=== PATIENT | male | born 1965 | race Caucasian/White ===

== ENCOUNTER → 2017-08-04 | Outpatient (CLI) | payer OTHER ==
[2015-06-29 09:29] VITALS: BP_DIAS 80
[2015-06-29 09:44] VITALS: BP_SYST 70
[~2017-08-04] MED LIST: ALPR0.5T PO; CYCL10TA2 PO; HYDR-2766 PO; OMEP40CA5 PO
[2017-08-04 13:19] LABS: ALBUMIN/GLOBULIN RATIO 1.3 (1.0-1.7); CALCIUM 9.3 mg/dL (8.5-10.1); CREATININE 0.8 mg/dL (0.7-1.3); GFR 101.1; POTASSIUM 4.4 mmol/L (3.5-5.1); TOTAL BILIRUBIN 0.5 mg/dL (0.2-1.0); TOTAL PROTEIN 7.2 g/dL (6.4-8.2)
== END | disposition home or self-care (01) ==
LOC: LAB 12:30
PROVIDERS: ATTEND Physician Assistant Medical
DX: M79.89 Other specified soft tissue disorders (principal)
CPT/HCPCS: 36415; 80053

== ENCOUNTER → 2018-02-22 | Outpatient (CLI) | payer OTHER, MEDICARE | END | disposition home or self-care (01) | LOC: RAD 14:29 | DX: M41.84 Other forms of scoliosis, thoracic region (principal); R05 Cough | CPT/HCPCS: 71046 ==

== ENCOUNTER → 2018-12-06 | Outpatient (CLI) | payer OTHER, MEDICARE ==
[2015-06-29 09:29] VITALS: BP_DIAS 80
[2015-06-29 09:44] VITALS: BP_SYST 70
[~2018-12-06] MED LIST changes: -HYDR-2766 PO; +HYDR-2769 PO
[2018-12-06 16:35] LABS: ALBUMIN 3.5 g/dL (3.4-5.0); ALBUMIN/GLOBULIN RATIO 0.9 (1.0-1.7); CALCIUM 9.2 mg/dL (8.5-10.1); CREATININE 0.8 mg/dL (0.7-1.3); GFR 100.7; POTASSIUM 3.7 mmol/L (3.5-5.1); TOTAL BILIRUBIN 0.4 mg/dL (0.2-1.0); TOTAL PROTEIN 7.2 g/dL (6.4-8.2)
[2018-12-06 16:37] LABS: CHOLESTEROL/HDL RATIO 5.3
--- NOTE | 2018-12-06 18:49 | RAD ---
Three-view right knee radiographs 12/06/2018 CLINICAL HISTORY: Chronic right knee pain and swelling. AP, lateral and oblique digital radiographs of the right knee were obtained. Moderate degenerative changes are seen involving all 3 compartments of the right knee. These consist of varying degrees of joint compartment narrowing, subchondral sclerosis and associated minimal to mild osteophyte formation. Chondrocalcinosis is seen involving the medial and lateral compartments. No fracture or dislocation is seen. IMPRESSION: Degenerative changes are seen involving the right knee as outlined above. No acute osseous abnormality is seen. Electronically signed by: Manuel Kat MD (12/06/2018 6:45 PM) [facility]
== END | disposition home or self-care (01) ==
LOC: RAD 15:55
PROVIDERS: ATTEND Family Medicine
DX: M17.11 Unilateral primary osteoarthritis, right knee (principal); E78.49 Other hyperlipidemia; M25.761 Osteophyte, right knee; M11.261 Other chondrocalcinosis, right knee
CPT/HCPCS: 36415; 73562; 80053; 80061

== ENCOUNTER → 2020-06-05 | Outpatient (CLI) | payer OTHER, MEDICARE ==
[2015-06-29 09:29] VITALS: BP_DIAS 80
[2015-06-29 09:44] VITALS: BP_SYST 70
[~2020-06-05] MED LIST changes: +CEPH500T PO; +OMEP40CA45 PO; -OMEP40CA5 PO
--- NOTE | 2020-06-07 15:08 | PATHOLOGY ---
[facility] Accession Number: [id number] . 01 Material submitted: . arm - RIGHT ARM LESION. Modifiers: right . 01 Clinical history: . Malignant neoplasm . 02 Diagnosis: Skin "right arm", biopsy: - BASAL CELL CARCINOMA; completely excised. (MLK:ivan; 06/07/2020) QMS 06/07/2020 1118 Local . 02 Electronically signed: . Wilbur Delacruz MD, Pathologist NPI- [id number] . 01 Gross description: . The specimen is received in formalin, labeled "Akira Fowler, right arm" and consists of a crusted pink-mo skin punch measuring 0.5 x 0.5 x 0.2 cm. The margin is inked. It is bisected and entirely submitted in A1. (GABRIEL; 06/06/2020) JFQ/JFQ 06/06/2020 1733 Local . 02 Pathologist provided ICD-10: C44.612 . 02 CPT . 045588 Specimen Comment: A courtesy copy of this report has been sent to [phone] Specimen Comment: Report sent to Performed at: 01 [facility] [address], [place] [id number] MD Wilver Naidu MD Phone: [phone] Performed at: 02 [facility] [address], [place] [id number] MD David Cedillo MD Phone: [phone]
== END | disposition home or self-care (01) ==
LOC: SPEC 16:07
PROVIDERS: ATTEND Family Medicine
DX: C44.612 Basal cell carcinoma of skin of right upper limb, including shoulder (principal)
CPT/HCPCS: 88305

== ENCOUNTER 2020-06-14 17:26 | Emergency (ER) | payer OTHER, MEDICARE ==
[~2020-06-14] VITALS: Ht 185.4 cm; Wt 82.0 kg
[~2020-06-14 17:26] MED LIST changes: -CEPH500T PO
--- NOTE | 2020-06-14 18:46 | PHYS DOC ---
General Adult EDM: Chief Complaint: LOWER EXTREMITY SWELLING HPI: HPI: Patient is a 55 year old [male patient who presents with right lower leg swelling and discoloration. Patient reports he has been like this for the last 2 days, has seem to be a bit worse. States he has had something similar in the past, had talked his primary care, they were concerned over a blood clot however they had never tested him for it, and put him on an antibiotic and it seemed to improve. States no recent trauma, no chemical exposure. States he had taken a water pill at home yesterday, and he had done this in the past and that helped before, but he has not noticed any swelling today. Also reports he had noticed a blister behind his right leg today also. Denies any fever. Review of Systems: Review of Systems: Constitutional: Denies fever or chills. [] Respiratory: Denies cough or shortness of breath. [] Cardiovascular: Denies chest pain or edema. [] Musculoskeletal: Denies back pain or joint pain. [] Integument: Reports discoloration to lateral lower legs, right significant worse than left, with blister noted to right leg. [] Neurologic: Denies headache, focal weakness or sensory changes. [] Endocrine: Denies polyuria or polydipsia. [] Lymphatic: Denies swollen glands. [] Psychiatric: Denies depression or anxiety. [] Heart Score: Risk Factors: Risk Factors: DM, Current or recent (<one month) smoker, HTN, HLP, family history of CAD, obesity. Risk Scores: Score 0 - 3: 2.5% MACE over next 6 weeks - Discharge Home Score 4 - 6: 20.3% MACE over next 6 weeks - Admit for Clinical Observation Score 7 - 10: 72.7% MACE over next 6 weeks - Early Invasive Strategies Allergies: Allergies: Allergies Coded Allergies Type Severity Reaction Last Updated Verified celecoxib Allergy Unknown 06/29/15 Yes Physical Exam: PE: Constitutional: Well developed, well nourished, no acute distress, non-toxic appearance. [] HENT: Normocephalic, atraumatic, nose normal. [] Eyes: PERRLA, EOMI, conjunctiva normal, no discharge. [] Cardiovascular:Heart rate regular rhythm, no murmur [] Lungs & Thorax: Bilateral breath sounds clear to auscultation [] Abdomen: Bowel sounds normal, soft, no tenderness, no masses, no pulsatile mas ses. [] Skin: Warm, dry, bilateral lower legs with scattered erythema. Left lower leg, distal one third with fading erythema, right lower leg distal one half with erythema, 1 cm blister noted to medial posterior lower leg, with 3 mm blisters noted to anterior portion, all circumferential above sock line, distal to sock line normal coloration, without pallor. Pulses intact distally. Minimal edema noted superior to sock line [] Back: No tenderness, no CVA tenderness. [] Extremities: No tenderness, no cyanosis, no clubbing, ROM intact, no edema. full ROM to foot and lower extremity [] Neurologic: Alert and oriented X 3, normal motor function, normal sensory function, no focal deficits noted. [] Psychologic: Affect normal, judgement normal, mood normal. [] EKG: EKG: [] Normal sinus rhythm without any ST changes. Per Dr. Pratt Radiology/Procedures: Radiology/Procedures: Examination: Unilateral venous Doppler. Technique: Ultrasound evaluation of the right lower extremity was performed from the groin to the upper calf with martinez scale, spectral and color doppler evaluation. Indication: Leg swelling Findings: There is normal venous flow and compressibility of right common femoral vein, femoral vein, popliteal vein, and visualized proximal calf veins. Impression: No evidence for deep vein thrombosis of right lower extremity from the level of the calf veins to the groins. Electronically signed by: Param Betancur MD (06/14/2020 7:30 PM) [facility] [] Course & Med Decision Making: Course & Med Decision Making Pertinent Labs and Imaging studies reviewed. (See chart for details) [] Given findings without none DVT, will treat for cellulitis, as areas erythematous bilaterally with swelling. Patient has had similar findings in the past, was treated with an backslash time. Will provide antibiotics, have patient follow-up with his primary care provider. Jose Disclaimer: Jose Disclaimer: This electronic medical record was generated, in whole or in part, using a voice recognition dictation system. Departure Departure Impression: Primary Impression: Lower extremity cellulitis Qualified Codes: L03.115 - Cellulitis of right lower limb Disposition: 01 HOME, SELF-CARE Condition: GOOD Referrals: BEA CRAMER MD (PCP) Patient Instructions: Cellulitis Additional Instructions: As we discussed, make sure you take the antibiotic as prescribed. There was no blood clots noted in your exam today. Try to follow-up with Dr. Cramer in the next week to make sure that you are improving. Scripts Cephalexin (CEPHALEXIN) 500 Mg Tablet 1 TAB PO TID, #30 TAB Prov: ESE PEPPER APRN 06/14/20 Justicifation of Admission Dx: Justifications for Admission: Justification of Admission Dx: N/A ESE PEPPER APRN Jun 14, 2020 18:46
--- NOTE | 2020-06-14 19:33 | RAD ---
Examination: Unilateral venous Doppler. Technique: Ultrasound evaluation of the right lower extremity was performed from the groin to the upper calf with martinez scale, spectral and color doppler evaluation. Indication: Leg swelling Findings: There is normal venous flow and compressibility of right common femoral vein, femoral vein, popliteal vein, and visualized proximal calf veins. Impression: No evidence for deep vein thrombosis of right lower extremity from the level of the calf veins to the groins. Electronically signed by: Param Betancur MD (06/14/2020 7:30 PM) [facility]
[2020-06-14] MEDS ORDERED: CEPH500T PO (20:25)
[2020-06-14 20:50] VITALS: BP 142/79
--- NOTE | 2020-06-18 11:07 | EKG ---
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
== END 2020-06-14 20:55 | disposition home or self-care (01) ==
LOC: ER 17:26
DX: L03.115 Cellulitis of right lower limb (principal); Z88.8 Allergy status to other drugs, medicaments and biological substances
CPT/HCPCS: 93005; 93971; 99285

== ENCOUNTER 2022-02-23 14:03 | Inpatient (IN) | payer OTHER, MEDICARE ==
[~2022-02-23] VITALS: Ht 185.4 cm; Wt 82.0 kg
[~2022-02-23 14:03] MED LIST changes: +CEPH500T PO; +CYCL10TA19 PO; -CYCL10TA2 PO; -OMEP40CA45 PO; +OMEP40CA7 PO
[2022-02-23] MEDS ORDERED: fentaNYL PF VIAL 100 MCG/2 ML VIAL IVP ONE ×2 (17:15→19:00)
--- NOTE | 2022-02-23 17:21 | PHYS DOC ---
Past Medical History Past Medical History: Anxiety, COPD, GERD, High Cholesterol, Other Additional Past Medical Histor: PLEURISY,BACK PAIN, CMT MUSCULAR DYSTROPHY,NERVE PAIN Past Surgical History: Other Additional Past Surgical Histo: BACK/BX FEET Smoking Status: Current Every Day Smoker Alcohol Use: Occasionally General Adult EDM: Chief Complaint: KNEE SWELLING HPI: HPI: Patient is a 56-year-old male who presents today with right knee pain and swelling. Patient states he first started noticing pain in his right knee last Thursday, he said on Thursday his knee started swelling and having increased pain, he said today he noticed there was warmth in the knee and decided to come to the emergency department for further evaluation. Patient states that he has had multiple steroid injections in the past in the right knee, but has not had any in the last 6 months to year. Patient states that when he was working he might have injured his knee by stepping wrong but he does not recall any trauma. Patient denies fever and chills, he also denies chest pain or shortness of breath. Review of Systems: Review of Systems: Constitutional: Denies fever or chills. [] Eyes: Denies change in visual acuity. [] HENT: Denies nasal congestion or sore throat. [] Respiratory: Denies cough or shortness of breath. [] Cardiovascular: Denies chest pain or edema. [] GI: Denies abdominal pain, nausea, vomiting, bloody stools or diarrhea. [] : Denies dysuria. [] Musculoskeletal: Right knee pain Integument: Denies rash. [] Neurologic: Denies headache, focal weakness or sensory changes. [] Endocrine: Denies polyuria or polydipsia. [] Lymphatic: Denies swollen glands. [] Psychiatric: Denies depression or anxiety. [] Heart Score: C/O Chest Pain: No Risk Factors: Risk Factors: DM, Current or recent (<one month) smoker, HTN, HLP, family history of CAD, obesity. Risk Scores: Score 0 - 3: 2.5% MACE over next 6 weeks - Discharge Home Score 4 - 6: 20.3% MACE over next 6 weeks - Admit for Clinical Observation Score 7 - 10: 72.7% MACE over next 6 weeks - Early Invasive Strategies Current Medications: Current Medications Medications (Trade) Dose Ordered Sig/Jignesh Start Time Stop Time Status Last Admin Dose Admin Fentanyl Citrate (Fentanyl 2ml Vial) 50 mcg 1X ONCE 02/23/22 17:15 02/23/22 17:16 DC Allergies: Allergies: Allergies Coded Allergies Type Severity Reaction Last Updated Verified celecoxib Allergy Unknown 06/29/15 Yes Physical Exam: PE: Constitutional: Well developed, well nourished, no acute distress, non-toxic appearance. [] HENT: Normocephalic, atraumatic, bilateral external ears normal, oropharynx una st, no oral exudates, nose normal. [] Eyes: PERRLA, EOMI, conjunctiva normal, no discharge. [] Neck: Normal range of motion, no tenderness, supple, no stridor. [] Cardiovascular:Heart rate regular rhythm, no murmur [] Lungs & Thorax: Bilateral breath sounds clear to auscultation [] Abdomen: Bowel sounds normal, soft, no tenderness, no masses, no pulsatile masses. [] Skin: Warm, dry, no erythema, no rash. [] Back: No tenderness, no CVA tenderness. [] Extremities: Right knee is swollen, redness and warmth is noted, decreased range of motion due to pain, dorsalis pedis pulse is 1+, cap refill distal to the pain is less than 2 seconds, and sensory is intact. Neurologic: Alert and oriented X 3, normal motor function, normal sensory function, no focal deficits noted. [] Psychologic: Affect normal, judgement normal, mood normal. [] Current Patient Data: Labs: Laboratory Tests Test 02/23/22 17:25 02/23/22 19:00 White Blood Count 9.8 x10^3/uL Red Blood Count 5.02 x10^6/uL Hemoglobin 15.9 g/dL Hematocrit 46.8 % Mean Corpuscular Volume 93 fL Mean Corpuscular Hemoglobin 32 pg Mean Corpuscular Hemoglobin Concent 34 g/dL Red Cell Distribution Width 13.4 % Platelet Count 255 x10^3/uL Neutrophils (%) (Auto) 63 % Lymphocytes (%) (Auto) 28 % Monocytes (%) (Auto) 8 % Eosinophils (%) (Auto) 1 % Basophils (%) (Auto) 1 % Neutrophils # (Auto) 6.2 x10^3/uL Lymphocytes # (Auto) 2.7 x10^3/uL Monocytes # (Auto) 0.8 x10^3/uL Eosinophils # (Auto) 0.1 x10^3/uL Basophils # (Auto) 0.1 x10^3/uL Erythrocyte Sedimentation Rate 19 Sodium Level 138 mmol/L Potassium Level 3.4 mmol/L Chloride Level 101 mmol/L Carbon Dioxide Level 30 mmol/L Anion Gap 7 Blood Urea Nitrogen 11 mg/dL Creatinine 0.8 mg/dL Estimated GFR (Cockcroft-Gault) 99.6 Glucose Level 77 mg/dL Calcium Level 9.3 mg/dL C-Reactive Protein, Quantitative 24.0 mg/L Body Fluid Source Synovial Body Fluid Color Yellow Body Fluid Clarity Clear Body Fluid Nucleated Cells 1750 /cmm Body Fluid Mononuclear WBCs (%) 3 % Body Fluid Polymorphonuclear Cells 97 % Body Fluid Total RBCs Counted 1400 /cmm Current Medications Medications (Trade) Dose Ordered Sig/Jignesh Route PRN Reason Start Time Stop Time Status Last Admin Dose Admin Fentanyl Citrate (Fentanyl 2ml Vial) 50 mcg 1X ONCE IVP 02/23/22 17:15 02/23/22 17:16 DC 02/23/22 17:38 Vancomycin HCl (Vanco Per Pharmacy) 1 each PRN DAILY PRN MC SEE COMMENTS 02/23/22 18:15 Ceftriaxone Sodium (Rocephin) 1 gm 1X ONCE IVP 02/23/22 18:15 02/23/22 18:16 DC 02/23/22 19:58 Vancomycin HCl 2 gm/Sodium Chloride 500 ml @ 250 mls/hr 1X ONCE IV 02/23/22 19:00 02/23/22 20:59 DC 02/23/22 19:59 Fentanyl Citrate (Fentanyl 2ml Vial) 50 mcg 1X ONCE IVP 02/23/22 19:00 02/23/22 19:24 DC 02/23/22 19:58 Ondansetron HCl (Zofran) 4 mg PRN Q8HRS PRN IVP NAUSEA/VOMITING 02/23/22 19:45 02/24/22 19:44 02/23/22 19:57 Fentanyl Citrate (Fentanyl 2ml Vial) 50 mcg PRN Q1HR PRN IVP PAIN 02/23/22 19:45 02/24/22 19:44 Vital Signs: Vital Signs Date Time Temp Pulse Resp B/P (MAP) Pulse Ox O2 Delivery O2 Flow Rate FiO2 02/23/22 16:48 98.0 90 18 151/95 (113) 99 Room Air 98.0 EKG: EKG: [] Radiology/Procedures: Radiology/Procedures: [REASON: knee pain and swelling PROCEDURE: KNEE RIGHT 4V Study: XR KNEE 4 VIEWS WITH PATELLA_RT Indication: Knee pain and swelling. Comparison: 01/03/2019 Findings: Moderate/severe medial femorotibial compartment joint space narrowing. Mild degenerative lateral translation of the tibia relative to the femur. Chondrocalcinosis. Tricompartmental osteophytic proliferation. Osteopenia. No acute fracture. Moderate knee joint effusion. Impression: 1. Moderate knee joint effusion in the setting of moderate tricompartmental osteoarthrosis. The extent of arthrosis has slightly progressed from the 2019 comparison. Taking into consideration osteopenia no acute fracture. 2. Chondrocalcinosis. Electronically signed by: LORRIE BORDEN MD (02/23/2022 6:05 PM) [facility]] Indication: right knee is swollen, red and warm to touch Consent: Verbal Consent given by patient. Procedure: The [] was positioned appropriately and the landmarks were identified. Area superior to the patella was cleansed with Betadine solution, using ultrasound guidance a 22-gauge 1-1/2 inch needle was introduced into fluid pocket superior to the patella, 12 mL of fluid was removed. Bandage was applied to the area. Fluid was yellow and cloudy in nature. The patient tolerated the procedure well. Complications: none. Course & Med Decision Making: Course & Med Decision Making Pertinent Labs and Imaging studies reviewed. (See chart for details) [address] Cramer he is agreeable to admitting, he did request that orthopedic service be consulted on this patient's case. [address] Rousseau with orthopedics and she states that will see patient in am for further evaluation and management of this ankle pain. Jose Disclaimer: Jose Disclaimer: This electronic medical record was generated, in whole or in part, using a voice recognition dictation system. Departure Departure Impression: Primary Impression: Right knee pain Qualified Codes: M25.561 - Pain in right knee Disposition: ADMITTED INPATIENT Admitting Physician: Bea Cramer Condition: STABLE Referrals: BEA CRAMER MD (PCP) SKIP JERNIGAN APRN Feb 23, 2022 17:20
[2022-02-23 17:51] LABS: BASO # 0.1 x10^3/uL (0.0-0.2); BASO % 1 % (0-3); EOS # 0.1 x10^3/uL (0.0-0.7); EOS % 1 % (0-3); HEMATOCRIT 46.8 % (39.0-53.0); HEMOGLOBIN 15.9 g/dL (13.0-17.5); LYMPH # 2.7 x10^3/uL (1.0-4.8); LYMPH % 28 % (24-48); MEAN CORPUSCULAR HEMOGLOBIN 32 pg (25-35); MEAN CORPUSCULAR HGB CONC 34 g/dL (31-37); MEAN CORPUSCULAR VOLUME 93 fL (79-100); MONO # 0.8 x10^3/uL (0.0-1.1); MONO % 8 % (0-9); NEUT # 6.2 x10^3/uL (1.8-7.7); NEUT % 63 % (31-73); PLATELET COUNT 255 x10^3/uL (140-400); RED BLOOD COUNT 5.02 x10^6/uL (4.30-5.70); RED CELL DISTRIBUTION WIDTH 13.4 % (11.5-14.5); WHITE BLOOD COUNT 9.8 x10^3/uL (4.0-11.0)
[2022-02-23 18:04] LABS: CALCIUM 9.3 mg/dL (8.5-10.1); CREATININE 0.8 mg/dL (0.7-1.3); GFR 99.6; POTASSIUM 3.4 mmol/L (3.5-5.1)
--- NOTE | 2022-02-23 18:07 | RAD ---
Study: XR KNEE 4 VIEWS WITH PATELLA_RT Indication: Knee pain and swelling. Comparison: 01/03/2019 Findings: Moderate/severe medial femorotibial compartment joint space narrowing. Mild degenerative lateral nix slation of the tibia relative to the femur. Chondrocalcinosis. Tricompartmental osteophytic prolifera tion. Osteopenia. No acute fracture. Moderate knee joint effusion. Impression: 1. Moderate knee joint effusion in the setting of moderate tricompartmental osteoarthrosis. The exten t of arthrosis has slightly progressed from the 2019 comparison. Taking into consideration osteopenia no acute fracture. 2. Chondrocalcinosis. Electronically signed by: LORRIE BORDEN MD (02/23/2022 6:05 PM) [facility]
[2022-02-23] MEDS ORDERED: cefTRIAXone IV Push 1 GM VIAL. IVP ONE (18:15)
[2022-02-23] MEDS ORDERED: VANCOMYCIN 2 GM in IV NORMAL SALINE 500ML BAG 500 ML IV ONE (19:00)
[2022-02-23] MEDS ORDERED: ONDANSETRON PF 4 MG/2 ML VIAL. IVP PRN (19:45)
[2022-02-23 20:25] LABS: BF CLARITY CLEAR; BF COLOR YELLOW; BF MON % 3 %; BF PMN % 97 %; BF RBC COUNT 1400 /cmm (Not Established); BF SOURCE SYNOVIAL; BF WBC COUNT 1750 /cmm (Not Established)
--- NOTE | 2022-02-23 20:35 | PDOC2 ---
CONSULT Date of Consult Date of Consult DATE: 02/23/22 TIME: 20:27 Reason for Consult Reason for Consult: Right knee pain/effusion History of Present Illness Reason for Visit: Patient reports that he has had pain in his right knee for a while. He has had cortisone injections in the past and says he has had 4 to 6 injections of cortisone by his primary care physician, Dr. Maxwell. He says that about 2 or 3 years ago he had 4 or 5 injections of hyaluronic acid done as well. He has not really had much problems with his knees since then. He says that he has been having pain every 7 to 10 days in his knee but he has never had any swelling. He says that he manually moves around his patella and this seems to help sometimes. He reports that most recently, he started having pain Thursday of last week and then Thursday he stood up quickly and says he thinks he tweaked his knee somehow, this is when the swelling started. He has been unable to put much weight on the knee since then. He denies any recent fevers chills night sweats or general feelings of illness. 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 He says that he occasionally drinks alcohol now but used to drink it daily. He reports smoking marijuana occasionally. He has not worked since 2011 due to his disability. He lives with his and son. Current Medications Current Medications Patient reports home medications as Neurontin, Flexeril, oxycodone 7.5, atorvastatin, omeprazole, furosemide, Xanax, Symbicort, albuterol Current Medications Fentanyl Citrate (Fentanyl 2ml Vial) 50 mcg 1X ONCE IVP Last administered on 02/23/22at 17:38; Start 02/23/22 at 17:15; Stop 02/23/22 at 17:16; Status DC Vancomycin HCl (Vanco Per Pharmacy) 1 each PRN DAILY PRN MC SEE COMMENTS; Start 02/23/22 at 18:15; Status UNV Ceftriaxone Sodium (Rocephin) 1 gm 1X ONCE IVP Last administered on 02/23/22at 19:58; Start 02/23/22 at 18:15; Stop 02/23/22 at 18:16; Status DC Vancomycin HCl 2 gm/Sodium Chloride 500 ml @ 250 mls/hr 1X ONCE IV Last administered on 02/23/22at 19:59; Start 02/23/22 at 19:00; Stop 02/23/22 at 20:59 Fentanyl Citrate (Fentanyl 2ml Vial) 50 mcg 1X ONCE IVP Last administered on 02/23/22at 19:58; Start 02/23/22 at 19:00; Stop 02/23/22 at 19:24; Status DC Ondansetron HCl (Zofran) 4 mg PRN Q8HRS PRN IVP NAUSEA/VOMITING Last administered on 02/23/22at 19:57; Start 02/23/22 at 19:45; Stop 02/24/22 at 19:44 Fentanyl Citrate (Fentanyl 2ml Vial) 50 mcg PRN Q1HR PRN IVP PAIN; Start 02/23/22 at 19:45; Stop 02/24/22 at 19:44 Active Scripts Active Cephalexin 500 Mg Tablet 1 Tab PO TID Reported Hydrocodone-Apap 10-325 (Hydrocodone Bit/Acetaminophen) 1 Each Tablet 1 Tab PO QID Omeprazole 40 Mg Capsule. 1 Cap PO DAILY Cyclobenzaprine Hcl 10 Mg Tablet 1 Tab PO BID Xanax (Alprazolam) 0.5 Mg Tablet 1 Tab PO DAILY Allergies Allergies: Coded Allergies: celecoxib (Verified Allergy, Unknown, 06/29/15) ROS Review of System Patient denies headache. No blurry vision or double vision. No ringing in the ears or difficulty hearing. No difficulty swallowing. No thyroid problems or diabetes. No chest pain. He does have occasional shortness of breath for which he uses inhalers. No abdominal pain. He does have constipation from his pain medication. No diarrhea. No blood in the stool or urine. No dysuria. No psychiatric illness. Physical Exam Physical Exam Patient is a pleasant 56-year-old male who appears well-developed, well- nourished and in no acute distress. He is seen in the emergency room at the request of the ER. He interacts with exam appropriately and is alert and oriented x3. The right knee has a Band-Aid over the superior lateral aspect with some dried sanguinous fluid that has dripped down the lateral aspect of the knee. There is a moderate effusion in the right knee. No erythema or warmth noted. Patient has approximately 45 degrees of active range of motion the right knee. Calf is soft. He is able to feel light touch in the foot and there is good capillary refill. Vitals VITALS Vital Signs Date Time Temp Pulse Resp B/P (MAP) Pulse Ox O2 Delivery O2 Flow Rate FiO2 02/23/22 19:58 16 98 02/23/22 19:02 88 143/101 (115) Room Air 02/23/22 16:48 98.0 98.0 Labs Labs Laboratory Tests Test 02/23/22 17:25 02/23/22 19:00 White Blood Count 9.8 x10^3/uL (4.0-11.0) Red Blood Count 5.02 x10^6/uL (4.30-5.70) Hemoglobin 15.9 g/dL (13.0-17.5) Hematocrit 46.8 % (39.0-53.0) Mean Corpuscular Volume 93 fL (79-100) Mean Corpuscular Hemoglobin 32 pg (25-35) Mean Corpuscular Hemoglobin Concent 34 g/dL (31-37) Red Cell Distribution Width 13.4 % (11.5-14.5) Platelet Count 255 x10^3/uL (140-400) Neutrophils (%) (Auto) 63 % (31-73) Lymphocytes (%) (Auto) 28 % (24-48) Monocytes (%) (Auto) 8 % (0-9) Eosinophils (%) (Auto) 1 % (0-3) Basophils (%) (Auto) 1 % (0-3) Neutrophils # (Auto) 6.2 x10^3/uL (1.8-7.7) Lymphocytes # (Auto) 2.7 x10^3/uL (1.0-4.8) Monocytes # (Auto) 0.8 x10^3/uL (0.0-1.1) Eosinophils # (Auto) 0.1 x10^3/uL (0.0-0.7) Basophils # (Auto) 0.1 x10^3/uL (0.0-0.2) Erythrocyte Sedimentation Rate 19 (0-15) Sodium Level 138 mmol/L (136-145) Potassium Level 3.4 mmol/L (3.5-5.1) Chloride Level 101 mmol/L (98-107) Carbon Dioxide Level 30 mmol/L (21-32) Anion Gap 7 (6-14) Blood Urea Nitrogen 11 mg/dL (8-26) Creatinine 0.8 mg/dL (0.7-1.3) Estimated GFR (Cockcroft-Gault) 99.6 Glucose Level 77 mg/dL (70-99) Calcium Level 9.3 mg/dL (8.5-10.1) C-Reactive Protein, Quantitative 24.0 mg/L (0-3.3) Body Fluid Source Synovial Body Fluid Color Yellow Body Fluid Clarity Clear Body Fluid Nucleated Cells 1750 /cmm (Not Established) Body Fluid Mononuclear WBCs (%) 3 % Body Fluid Polymorphonuclear Cells 97 % Body Fluid Total RBCs Counted 1400 /cmm (Not Established) Laboratory Tests Test 02/23/22 17:25 02/23/22 19:00 White Blood Count 9.8 x10^3/uL (4.0-11.0) Red Blood Count 5.02 x10^6/uL (4.30-5.70) Hemoglobin 15.9 g/dL (13.0-17.5) Hematocrit 46.8 % (39.0-53.0) Mean Corpuscular Volume 93 fL (79-100) Mean Corpuscular Hemoglobin 32 pg (25-35) Mean Corpuscular Hemoglobin Concent 34 g/dL (31-37) Red Cell Distribution Width 13.4 % (11.5-14.5) Platelet Count 255 x10^3/uL (140-400) Neutrophils (%) (Auto) 63 % (31-73) Lymphocytes (%) (Auto) 28 % (24-48) Monocytes (%) (Auto) 8 % (0-9) Eosinophils (%) (Auto) 1 % (0-3) Basophils (%) (Auto) 1 % (0-3) Neutrophils # (Auto) 6.2 x10^3/uL (1.8-7.7) Lymphocytes # (Auto) 2.7 x10^3/uL (1.0-4.8) Monocytes # (Auto) 0.8 x10^3/uL (0.0-1.1) Eosinophils # (Auto) 0.1 x10^3/uL (0.0-0.7) Basophils # (Auto) 0.1 x10^3/uL (0.0-0.2) Erythrocyte Sedimentation Rate 19 (0-15) Sodium Level 138 mmol/L (136-145) Potassium Level 3.4 mmol/L (3.5-5.1) Chloride Level 101 mmol/L (98-107) Carbon Dioxide Level 30 mmol/L (21-32) Anion Gap 7 (6-14) Blood Urea Nitrogen 11 mg/dL (8-26) Creatinine 0.8 mg/dL (0.7-1.3) Estimated GFR (Cockcroft-Gault) 99.6 Glucose Level 77 mg/dL (70-99) Calcium Level 9.3 mg/dL (8.5-10.1) C-Reactive Protein, Quantitative 24.0 mg/L (0-3.3) Body Fluid Source Synovial Body Fluid Color Yellow Body Fluid Clarity Clear Body Fluid Nucleated Cells 1750 /cmm (Not Established) Body Fluid Mononuclear WBCs (%) 3 % Body Fluid Polymorphonuclear Cells 97 % Body Fluid Total RBCs Counted 1400 /cmm (Not Established) Images Images 3 views of the right knee show an effusion and DJD Assessment/Plan Assessment/Plan Right knee pain/effusion Multiple comorbidities Tobacco abuse The emergency room aspirated the right knee and specimen was sent to the lab. This may be an exacerbation of DJD. If there is infection found from the aspiration, we will take him to the operating room for irrigation and debridement of the right knee. He can be weightbearing as tolerated from an orthopedic standpoint. We discussed that if there is nothing to washout, he can follow-up with Dr. Ramon in our office for consideration of further injections or other treatments for arthritis. The patient agrees with this plan. Vitals, laboratory findings and x-rays were reviewed. SO RIBEIRO Feb 23, 2022 20:35
[2022-02-23 23:30] VITALS: BP 141/86
--- NOTE | 2022-02-23 23:30 | NUR ---
The patient, RAYSHAWN FLORES, 56 y/o, M admitted by BEA CRAMER MD, was given written information regarding hospital policies, unit procedures and contact persons. Valuables were checked and left with him.
[2022-02-24] MEDS: VANCOMYCIN PER PHARMACY MC PRN ×2 (01:04→01:20)
[2022-02-24] MEDS: fentaNYL PF VIAL 100 MCG/2 ML VIAL IVP PRN ×3 (01:12→16:25)
--- NOTE | 2022-02-24 01:15 | NUR ---
Pharmacy Vancomycin Dosing Note S:Consulted to monitor and dose vancomycin started 02/23/22. O:RAYSHAWN FLORES is a 56 year old M with . Height: 6 feet, 1 inches Weight: 82.0 kg [place] Body Weight: 79.90 Adjusted Body Weight: 80.74 Dosing Weight: Actual Other Antibiotics: CEFTRIAXONE X1 02/23 LABS: Last BUN: 11 Last Creatinine: 0.8 Creatinine Clearance: >100 mL/min Last WBC: 9.2 Last Procalcitonin: - Tmax (past 24 hours): 98 Microbiology: 02/23 KNEE FLUID ASPIRATE CX PENDING I/O: Drug Levels: Last level: on at Last dose given 02/23/22 at 2000 Vancomycin Dosing: Loading Dose: 2000 mg x1 Dosing Weight: Actual Target Trough: 15-20 A: Based on: weight, renal function, infection type, P: 1. Initiate Vancomycin 1500 mg IV q12h after 2000 mg loading dose 2. Follow up Trough level on 02/25/22 at 0730 3. Pharmacy will continue to monitor, follow and adjust therapy as needed. ECTOR NAJERA [facility], 02/24/22 0115
[2022-02-24] MEDS ORDERED: GABA600T7 PO (01:20)
[2022-02-24] MEDS ORDERED: FURO40TA4 PO (01:22)
[2022-02-24] MEDS ORDERED: GABA300C18 PO (01:24)
[2022-02-24] MEDS ORDERED: ATOR10TA60 PO (01:24)
[2022-02-24 03:30] VITALS: BP 129/71
[2022-02-24 07:04] LABS: CREATININE 0.7 mg/dL (0.7-1.3); GFR 116.2
[2022-02-24] MEDS: VANCOMYCIN 1.5 GM in IV NORMAL SALINE 500ML BAG 500 ML IV SCH ×2 (07:31→20:39)
[2022-02-24 07:37] VITALS: BP 173/89
[2022-02-24] MEDS ORDERED: ALPRAZolam 0.5 MG TABLET PO SCH (09:00)
[2022-02-24] MEDS: LACTOBACILLUS RHAMNOSUS GG 1 CAPSULE. PO SCH ×2 (09:05→20:38)
[2022-02-24] MEDS: HYDROcodone/APAP 10/325 1 TAB TABLET PO SCH ×4 (09:06→20:38)
[2022-02-24] MEDS: GABAPENTIN 300 MG CAPSULE. PO SCH ×3 (09:06→20:38)
[2022-02-24] MEDS: CYCLOBENZAPRINE 10 MG TABLET. PO SCH ×2 (09:06→20:38)
[2022-02-24 10:31] VITALS: BP 117/83
--- NOTE | 2022-02-24 12:56 | HP ---
DATE OF SERVICE: 02/24/2022 ADMIT DATE: 02/23/2022 CHIEF COMPLAINT: Painful right knee. HISTORY OF PRESENT ILLNESS: The patient has chronic pain. The patient had seen me for multiple problems including previous joint injection of the right knee and has had gel injections in that knee as well, but not for several months. He may have tweaked the knee recently and came in with increasing pain, redness and swelling. Aspiration of the joint revealed fluid, but had some white cells and red cells, no known bacteria and he is on IV vancomycin at this point in the ER and orthopedics has seen him. PAST MEDICAL HISTORY: Well documented in the old record. He uses oxycodone for chronic pain. ALLERGIES: No known allergies. VACCINE STATUS: Uncertain. SOCIAL HISTORY: Still smoker to my knowledge. Nondrinker. No history of gout. He is disabled and . FAMILY HISTORY: Unremarkable. REVIEW OF SYSTEMS: No other complaints. ENT: All within normal limits. NECK: No masses, nodes or bruits. LUNGS: Clear. CARDIOVASCULAR: Regular rate. No irregular beat or murmur. ABDOMEN: Benign. EXTREMITIES: The right knee is red, sore and swollen. No active drainage noted. No signs of secondary infection present. NEUROLOGIC: He has atrophy of the lower extremities consistent with his known neurologic diagnosis. There are no acute findings otherwise. ASSESSMENT: Acute synovitis of the right knee. It could be due to degenerative and gouty or even septic in origin. PLAN: Continue vancomycin, pending culture results. Check uric acid. He does take furosemide which perhaps could increase his uric acid. No steroids or other anti-inflammatories pending joint fluid culture. ZAN/JOSÉ MIGUEL/[facility] [place]: ZAN/marlene TID: [id number]
[2022-02-24 15:00] VITALS: BP 126/82
--- NOTE | 2022-02-24 17:23 | PDOC ---
PROGRESS NOTES Date of Service DATE: 02/24/22 TIME: 17:20 Subjective Subjective Problems overnight: Objective Vital Signs Vital Signs Date Time Temp Pulse Resp B/P (MAP) Pulse Ox O2 Delivery O2 Flow Rate FiO2 02/24/22 16:49 20 93 Room Air 02/24/22 15:00 98.2 70 126/82 (97) 98.2 Labs Laboratory Tests Test 02/23/22 17:25 02/23/22 19:00 02/24/22 06:30 White Blood Count 9.8 x10^3/uL (4.0-11.0) Red Blood Count 5.02 x10^6/uL (4.30-5.70) Hemoglobin 15.9 g/dL (13.0-17.5) Hematocrit 46.8 % (39.0-53.0) Mean Corpuscular Volume 93 fL (79-100) Mean Corpuscular Hemoglobin 32 pg (25-35) Mean Corpuscular Hemoglobin Concent 34 g/dL (31-37) Red Cell Distribution Width 13.4 % (11.5-14.5) Platelet Count 255 x10^3/uL (140-400) Neutrophils (%) (Auto) 63 % (31-73) Lymphocytes (%) (Auto) 28 % (24-48) Monocytes (%) (Auto) 8 % (0-9) Eosinophils (%) (Auto) 1 % (0-3) Basophils (%) (Auto) 1 % (0-3) Neutrophils # (Auto) 6.2 x10^3/uL (1.8-7.7) Lymphocytes # (Auto) 2.7 x10^3/uL (1.0-4.8) Monocytes # (Auto) 0.8 x10^3/uL (0.0-1.1) Eosinophils # (Auto) 0.1 x10^3/uL (0.0-0.7) Basophils # (Auto) 0.1 x10^3/uL (0.0-0.2) Erythrocyte Sedimentation Rate 19 (0-15) Sodium Level 138 mmol/L (136-145) Potassium Level 3.4 mmol/L (3.5-5.1) Chloride Level 101 mmol/L (98-107) Carbon Dioxide Level 30 mmol/L (21-32) Anion Gap 7 (6-14) Blood Urea Nitrogen 11 mg/dL (8-26) Creatinine 0.8 mg/dL (0.7-1.3) 0.7 mg/dL (0.7-1.3) Estimated GFR (Cockcroft-Gault) 99.6 116.2 Glucose Level 77 mg/dL (70-99) Calcium Level 9.3 mg/dL (8.5-10.1) C-Reactive Protein, Quantitative 24.0 mg/L (0-3.3) Body Fluid Source Synovial Body Fluid Color Yellow Body Fluid Clarity Clear Body Fluid Nucleated Cells 1750 /cmm (Not Established) Body Fluid Mononuclear WBCs (%) 3 % Body Fluid Polymorphonuclear Cells 97 % Body Fluid Total RBCs Counted 1400 /cmm (Not Established) Uric Acid 4.8 mg/dL (3.5-7.2) Laboratory Tests Test 02/23/22 17:25 02/23/22 19:00 02/24/22 06:30 White Blood Count 9.8 x10^3/uL (4.0-11.0) Red Blood Count 5.02 x10^6/uL (4.30-5.70) Hemoglobin 15.9 g/dL (13.0-17.5) Hematocrit 46.8 % (39.0-53.0) Mean Corpuscular Volume 93 fL (79-100) Mean Corpuscular Hemoglobin 32 pg (25-35) Mean Corpuscular Hemoglobin Concent 34 g/dL (31-37) Red Cell Distribution Width 13.4 % (11.5-14.5) Platelet Count 255 x10^3/uL (140-400) Neutrophils (%) (Auto) 63 % (31-73) Lymphocytes (%) (Auto) 28 % (24-48) Monocytes (%) (Auto) 8 % (0-9) Eosinophils (%) (Auto) 1 % (0-3) Basophils (%) (Auto) 1 % (0-3) Neutrophils # (Auto) 6.2 x10^3/uL (1.8-7.7) Lymphocytes # (Auto) 2.7 x10^3/uL (1.0-4.8) Monocytes # (Auto) 0.8 x10^3/uL (0.0-1.1) Eosinophils # (Auto) 0.1 x10^3/uL (0.0-0.7) Basophils # (Auto) 0.1 x10^3/uL (0.0-0.2) Erythrocyte Sedimentation Rate 19 (0-15) Sodium Level 138 mmol/L (136-145) Potassium Level 3.4 mmol/L (3.5-5.1) Chloride Level 101 mmol/L (98-107) Carbon Dioxide Level 30 mmol/L (21-32) Anion Gap 7 (6-14) Blood Urea Nitrogen 11 mg/dL (8-26) Creatinine 0.8 mg/dL (0.7-1.3) 0.7 mg/dL (0.7-1.3) Estimated GFR (Cockcroft-Gault) 99.6 116.2 Glucose Level 77 mg/dL (70-99) Calcium Level 9.3 mg/dL (8.5-10.1) C-Reactive Protein, Quantitative 24.0 mg/L (0-3.3) Body Fluid Source Synovial Body Fluid Color Yellow Body Fluid Clarity Clear Body Fluid Nucleated Cells 1750 /cmm (Not Established) Body Fluid Mononuclear WBCs (%) 3 % Body Fluid Polymorphonuclear Cells 97 % Body Fluid Total RBCs Counted 1400 /cmm (Not Established) Uric Acid 4.8 mg/dL (3.5-7.2) Assessment Assessment POD# Plan Plan of Care Pt seen, laying comfortably in bed, at bedside. Pt reports that his knee feels better. Says that Dr. Perdomo came by and talked to him about having a total knee once his swelling has gone down. R knee still has signficant efffusion. No pain with passive ROM. Calf soft. There is no gm stain back yet, no microbiology back. Crystals have not been done yet or have not been reported in the chart. Pt remains afebrile. PT/OT. WBAT. This doesn't seem to be acting like a septic arthritis but it would be nice to have a gm stain at least. No new labs were ordered for today so we put them in for today. Justicifation of Admission Dx: Justifications for Admission: Justification of Admission Dx: N/A SO RIBEIRO Feb 24, 2022 17:23
[2022-02-24 18:15] LABS: BASO # 0.1 x10^3/uL (0.0-0.2); BASO % 1 % (0-3); EOS # 0.1 x10^3/uL (0.0-0.7); EOS % 2 % (0-3); HEMATOCRIT 45.8 % (39.0-53.0); LYMPH % 25 % (24-48); MEAN CORPUSCULAR HEMOGLOBIN 31 pg (25-35); MEAN CORPUSCULAR HGB CONC 33 g/dL (31-37); MEAN CORPUSCULAR VOLUME 94 fL (79-100); MONO # 0.4 x10^3/uL (0.0-1.1); MONO % 4 % (0-9); NEUT # 5.5 x10^3/uL (1.8-7.7); NEUT % 69 % (31-73); PLATELET COUNT 214 x10^3/uL (140-400); RED BLOOD COUNT 4.89 x10^6/uL (4.30-5.70); RED CELL DISTRIBUTION WIDTH 13.1 % (11.5-14.5); WHITE BLOOD COUNT 8.1 x10^3/uL (4.0-11.0)
[2022-02-24 19:00] VITALS: BP 143/77
[2022-02-24] MEDS ORDERED: ATORVASTATIN CALCIUM 10 MG TABLET. PO SCH (21:00)
--- NOTE | 2022-02-24 22:33 | CONS ---
DATE OF CONSULTATION: 02/24/2022 HISTORY OF PRESENT ILLNESS: Dr. Rousseau had contacted me last p.m. and asked to follow up with this patient as her physician's academic support assistant did evaluate this patient in the Emergency Department and after that an aspiration of this right knee was undertaken. The patient was admitted to the hospital to rule out a septic joint at this point. According to the patient, he has had this type of pain on and off; however, over the last 6-8 weeks, three different events have occurred where he had locking of the knee completely and then after that he was able to ice it, elevate it and modify activities, swelling significantly improved and he had slowly improved range of motion, but he has had multiple injections including steroid, also hyaluronic acid was injected approximately a 1-1/2-2 years ago according to them by Dr. Reynaga and/or Dr. Finn. After full evaluations, the patient has been functioning until recently when these events occurred. There have been no fevers, no chills, no signs of significant redness either in the beginning of this or during these incidences. Most recently, this was just a little more pain and he can tolerate. Therefore, he came to the Emergency Department. No other complaints today. REVIEW OF SYSTEMS: Completely unremarkable other than the knee symptoms. CURRENT MEDICATIONS: Xanax, atorvastatin, cephalexin, cyclobenzaprine, furosemide, gabapentin, hydrocodone, omeprazole. PAST MEDICAL HISTORY: Significant for muscular dystrophy, sciatic nerve damage as well as Rjuthql-Vrqvb-Yzgnn, gastroesophageal reflux, and high cholesterol. PAST SURGICAL HISTORY: Triple arthrodesis on bilateral feet, chronic right lower extremity swelling, hernia repair and lumbar fusion. FAMILY HISTORY: Noncontributory. SOCIAL HISTORY: He does smoke 1 pack of cigarettes per day. This has been every day over the last 40 years. He does not excessively use alcohol, but very rarely uses alcohol. He does smoke marijuana occasionally. He was disabled that diagnosis came back in 2011. MEDICATION ALLERGIES: CELEBREX. PHYSICAL EXAMINATION: EXTREMITIES: Today reveals a large joint effusion. He does lack full extension by 5 degrees. Flexion is up to 90. No instability in the varus, valgus or AP plane. No atrophy of musculature, right versus left. It is pretty equal, although they both are slightly atrophied. He does have significant atrophy as expected due to the Tfoscpz-Arwkz-Wjksg diagnosis of significant calf changes. Upper extremity, he does have findings of neurologic dysfunction as well. Vascular status is fully intact in the upper and lower extremities. GENERAL: He is alert and oriented x 3 and answers questions appropriately. His vital signs are stable and he is afebrile at this point. CHEST: Clear to auscultation. ABDOMEN: Soft and nontender at this point. LABORATORY DATA: His laboratory values were reviewed. The white blood cell count is within normal limits. Most importantly, his sed rate is very minimally elevated at this point. It should be noted that his sed rate is only 19 at this point. We are still awaiting the Gram stain and culture results at this point. IMPRESSION: Chondrocalcinosis, right knee with severe degenerative changes. PLAN: At this time, I have talked with him and his about the fact that I have gone over the x-rays, which do show quite significant degeneration and quite significant chondrocalcinosis. I believe at the present time, he does have some locked tears of the meniscus as well as significant degenerative changes of that right knee. Thankfully, at this point, he does not appear to have any type of active infection at this point; therefore orthopedically, he is stable for discharge; however, I have talked with him and his about the risks, complications as well as benefits and expectations of total knee arthroplasty versus continuation of conservative treatments. They will think about that and followup with me in a very short period of time and we will proceed accordingly. Until then, ice, elevation, anti-inflammatories would be appropriate at this point. I think he could go ahead and discontinue the antibiotics. It does not appear red, hot, swollen at all at this point. Thank you for allowing me to see this patient. ALEXIS/ALIZE/CRICKET CHOWDHURY: ALEXIS/marlene TID: [id number]
[2022-02-24 23:30] VITALS: BP 153/79
[2022-02-25] MEDS ORDERED: ALPR1TAB6 PO (02:17)
[2022-02-25] MEDS ORDERED: OXYC1TAB17 PO (02:17)
[2022-02-25] MEDS: oxyCODONE/APAP 7.5/325 1 TAB TABLET PO PRN ×2 (02:29→08:10)
[2022-02-25 07:14] VITALS: BP 169/81
[2022-02-25] MEDS ORDERED: PANTOPRAZOLE 40 MG TABLET.DR. PO SCH (07:30)
[2022-02-25 07:55] LABS: CREATININE 0.7 mg/dL (0.7-1.3); GFR 116.2
[2022-02-25 08:01] LABS: VANC TR 15.6 mcg/mL (10.0-20.0)
[2022-02-25] MEDS: GABAPENTIN 300 MG CAPSULE. PO SCH (08:09)
[2022-02-25] MEDS: LACTOBACILLUS RHAMNOSUS GG 1 CAPSULE. PO SCH (08:09)
[2022-02-25] MEDS: CYCLOBENZAPRINE 10 MG TABLET. PO SCH (08:09)
[2022-02-25] MEDS ORDERED: NAPROXEN 500 MG TABLET PO ONE (09:15)
[2022-02-25 11:54] VITALS: BP 159/78
--- NOTE | 2022-02-25 12:50 | NUR ---
pt was discharged home with self care, advised to call the Orthopedics office to schedule an appt to get a knee replacement. he was taken to the main entrance at 1200 and picked up by his . Buzz Garay RN
[2022-02-25] MEDS ORDERED: ALPRAZolam 1 MG TABLET PO SCH (21:00)
--- NOTE | 2022-02-26 05:26 | DS ---
DATE OF DISCHARGE: 02/25/2022 HOSPITAL SUMMARY: The patient came in with ____ joint disease, needing consideration of knee replacement. X-ray showed chondrocalcinosis and a large effusion. Joint fluid showed no organisms or signs of infection. There were white cells present. Sed rate, CBC and chemistry profile was unremarkable. He was given IV vancomycin. The cultures have been negative and Dr. Perdomo saw him and felt like this was more of an acute pseudogout with underlying degenerative joint disease. ____ single dose of naproxen prior to discharge. I will see him later today ____ for fluid removal and steroid injection to temporize the ____ of this pseudogout. ASSESSMENT: Acute pseudogout of the right knee. OPERATIONS, PROCEDURES AND COMPLICATIONS: None. CONSULTATION: Dr. Perdomo. DISPOSITION: Discharged home. Meds are the same. We will see later today for joint injection ____ joint replacement. ZAN/AGUILA/DANE DR: Ji TID: [id number]
== END 2022-02-25 12:52 | disposition home or self-care (01) | DRG 554 ==
LOC: ER 14:03 → ED HOLD 20:36 → 2 NORTH 20:36 → ED HOLD 21:58 → 2 NORTH 02-24 08:30
PROVIDERS: ADMIT Family Medicine; ATTEND Family Medicine
DX: M11.261 Other chondrocalcinosis, right knee (principal); E78.00 Pure hypercholesterolemia, unspecified; F17.210 Nicotine dependence, cigarettes, uncomplicated; G89.29 Other chronic pain; J44.9 Chronic obstructive pulmonary disease, unspecified; M19.90 Unspecified osteoarthritis, unspecified site; M65.88 Other synovitis and tenosynovitis, other site; F41.9 Anxiety disorder, unspecified; K21.9 Gastro-esophageal reflux disease without esophagitis; Z88.8 Allergy status to other drugs, medicaments and biological substances; M10.9 Gout, unspecified
CPT/HCPCS: 36415; 73564; 80048; 80202; 82565; 82945; 84157; 84550; 85025; 85651; 86140; 87040; 87075; 87102; 87116; 89050; 89060; 96374; 96375; J0696; J2405; J3010; J3370; J7040; 20610-50; 99285-25; G0378